=== PATIENT | female | born 1975 | race Caucasian/White ===

== ENCOUNTER → 2016-11-26 | Outpatient (CLI) | payer BC ==
[2016-11-26 19:10] LABS: Basophils # (A) 0.1 k/uL (0-0.2); Basophils % (A) 1 %; CH 29.6; Eosinophils # (A) 0.1 k/uL (0-0.7); Eosinophils % (A) 2 %; HCT 45.4 % (34.0-46.0); HDW 2.33; HGB 14.7 gm/dL (11.4-16.0); Luc # (Auto) 0.07; Luc % (Auto) 1; Lymphocytes # (A) 2.6 k/uL (1.0-4.8); Lymphocytes % (A) 29 %; MCH 29.2 pg (25.0-35.0); MCHC 32.3 g/dL (31.0-37.0); MCV 90.3 fL (80.0-100.0); Mean Platelet Volume 8.1; Monocytes # (A) 0.5 k/uL (0-1.0); Monocytes % (A) 5 %; Neutrophils # (A) 5.6 k/uL (1.3-7.7); Neutrophils % (A) 63 %; RBC 5.03 m/uL (3.80-5.40); WBC 8.9 k/uL (3.8-10.6); WBC (Perox) 8.76
== END | disposition home or self-care (01) ==
LOC: MMGSC 12:42
PROVIDERS: ATTEND Family Medicine
DX: D72.829 Elevated white blood cell count, unspecified (principal)
CPT/HCPCS: 36415; 85025

== ENCOUNTER → 2016-12-20 | Outpatient (CLI) | payer BC | END | disposition home or self-care (01) | LOC: MMGSC 12:56 | PROVIDERS: ATTEND Family Medicine | DX: H53.9 Unspecified visual disturbance (principal); H81.49 Vertigo of central origin, unspecified ear; R93.3 Abnormal findings on diagnostic imaging of other parts of digestive tract | CPT/HCPCS: 36415; 82306; 82607; 86618 ==

== ENCOUNTER 2025-05-03 11:14 | Day surgery (SDC) | payer BC ==
[2025-05-02 08:38] VITALS: BMI 34.1
[2025-05-03 11:43] VITALS: TEMP 98.8
[2025-05-03] MEDS: LACTATED RINGERS 1,000 ML IV SCH (11:44)
[2025-05-03] MEDS: IV FLUID CONTINUATION 1,000 ML IV ONE ×2 (11:51→12:21)
[2025-05-03] MEDS ORDERED: PROPOFOL 10 MG/ML 20 ML VIAL IV ONE (12:22)
[2025-05-03] MEDS ORDERED: LIDOCAINE 2% (PF) 20 MG/ML 5 ML VIAL ONE (12:22)
--- NOTE | 2025-05-03 12:29 | P.PCN ---
Date of Procedure: 05/03/25 Procedure(s) Performed: BRIEF HISTORY: Patient is a 49-year-old, pleasant, white female scheduled upper endoscopy as a part of evaluation of chronic epigastric discomfort with fullness for the last several years duration. She was treated with PPIs in the past. Had severe side effects of migraines and hence stopped it. Currently on Carafate l 1 g twice daily as well as antacids as needed. PROCEDURE PERFORMED: Esophagogastroduodenoscopy with biopsy. PREOPERATIVE DIAGNOSIS: Chronic epigastric pain. IV sedation per anesthesia. PROCEDURE: After informed consent was obtained, the patient was brought into the endoscopy unit. IV sedation was administered by Anesthesia under continuous monitoring. Initially the Olympus GIF-140 video endoscope was inserted into the mouth. Esophagus intubated without any difficulty. It was gradually advanced into the stomach and duodenum and carefully examined. The bulb and the second part of the duodenum appeared normal. Biopsies were done from the duodenum to rule out celiac disease. The scope at this time was withdrawn to the stomach, adequately insufflated with air, and upon careful examination, mucosa of the antrum, and mild gastritis and a small gastric polyp which was biopsied. The rest of the body, cardia and the fundus appeared normal. The scope was then withdrawn into the esophagus. The GE junction was located at 39 cm from the incisors. The esophagus appeared normal. There were no erosions or ulcerations seen biopsies were done from the distal esophagus and the patient tolerated the procedure well. IMPRESSION: 1. Mild antral gastritis. 2. Small antral gastric polyp. 3. No evidence of esophagitis or Diaz's esophagus RECOMMENDATIONS: The findings of this examination were discussed with the patient as well as her family. She was advised to follow-up with the biopsy results.. Continue with Carafate as needed and follow-up in the office in 3 to 4 weeks.
[2025-05-03 12:50] VITALS: BP 112/67; PULSE 77; RESP 16
== END 2025-05-03 13:07 | disposition home or self-care (01) ==
LOC: ORWHC2ENDO 11:14
PROVIDERS: ATTEND Internal Medicine Gastroenterology
DX: K29.50 Unspecified chronic gastritis without bleeding (principal); K31.7 Polyp of stomach and duodenum; K21.9 Gastro-esophageal reflux disease without esophagitis; Z90.89 Acquired absence of other organs; Z88.0 Allergy status to penicillin; Z79.899 Other long term (current) drug therapy
CPT/HCPCS: 81025; 88305; 88342; 43239; J2704; J2003